=== PATIENT | male | born 2000 | race Hispanic/Latino ===

== ENCOUNTER 2023-12-16 14:48 | Emergency (ER) | payer SELFPAY ==
--- NOTE | 2023-12-16 16:14 | RAD REPORT ---
EXAM: Testicular/scrotal ultrasound HISTORY: Left testicle pain COMPARISON: None TECHNIQUE: Multiplanar grayscale and color Doppler images were obtained in a testicular/scrotal ultra sound. Spectral analysis of the Doppler waveforms of the testicles were performed. FINDINGS: Right testicle: Normal in echogenicity. No focal mass. Normal internal flow. Left testicle: Normal in echogenicity. No focal mass. Normal internal flow. Right epididymis. No epididymal cyst. Normal internal flow. Left epididymis. No epididymal cyst. Normal internal flow. No hydrocele is present. Left-sided varicocele is present. IMPRESSION: Left-sided varicocele. Bilateral testicular blood flow.
[2023-12-16 16:50] LABS: Specific Gravity 1.022 (1.005-1.030); Sqamous Epithelial None Seen /HPF (None Seen); Urine Bacteria <20 /HPF (<20); Urine Bilirubin NEGATIVE (Negative); Urine Blood Negative (Negative); Urine Clarity Extremely Turbid (Clear); Urine Color Light-Yellow (Yellow); Urine Culture Reflex Order NOT NEEDED; Urine Glucose NEGATIVE (Negative); Urine Ketones NEGATIVE (Negative); Urine Microscopic Reflex YN ORDER UMIC; Urine Nitrite NEGATIVE (Negative); Urine Protein NEGATIVE (Negative); Urine RBC <5 /HPF (None Seen); Urine Urobilinogen Normal (Normal); Urine WBC <5 /HPF (<5)
--- NOTE | 2023-12-16 17:20 | EDPHYS ---
Physician Documentation [facility] Name: Connor Quiroz Age: 23 yrs Sex: Male : 2000 Arrival Date: 12/16/2023 Time: 14:48 Bed 12 Private MD: ED Physician Romain Hyman HPI: 12/15 15:10 This 23 yrs old Male presents to ER via Ambulatory with complaints of cp Testicular Lump, Testicular Pain. 15:10 The patient presents with tenderness, of the left testicle, c/o palpated tender "lump". cp Onset: The symptoms/episode began/occurred yesterday. Associated signs and symptoms: Pertinent positives: lower abdomen pain and tenderness. Historical: - Allergies: 15:11 No Known Allergies; aa5 - PMHx: 15:11 None; aa5 - PSHx: 15:11 Appendectomy; aa5 - Immunization history:: Adult Immunizations unknown. - Infectious Disease History:: Denies. - Social history:: Smoking status: Patient reports the use of cigarette tobacco products. ROS: 15:15 : Positive for testicular pain Negative for urinary symptoms, hematuria, cp 15:15 Constitutional: Negative for body aches, chills, fever, poor PO intake, cp 15:15 Abdomen/GI: Negative for vomiting, diarrhea, constipation, 15:15 Back: Negative for pain at rest, pain with movement, 15:15 All other systems are negative, Exam: 15:22 Constitutional: The patient appears in no acute distress, alert, awake, non-toxic, well cp developed, well nourished, 15:22 Head/Face: Normocephalic, atraumatic. cp 15:22 Chest/axilla: Inspection: normal, 15:22 Cardiovascular: Rate: normal, Rhythm: regular, 15:22 Respiratory: the patient does not display signs of respiratory distress, Respirations: normal, no use of accessory muscles, no retractions, labored breathing, is not present, 15:22 Abdomen/GI: Inspection: abdomen appears normal, Bowel sounds: active, all quadrants, Palpation: abdomen is soft and non-tender, in all quadrants, 15:22 : Male external genitalia: Patient is not circumisioned. swelling: is not appreciated, tenderness, of the left testicle is noted, that is mild, 15:22 Skin: cellulitis, is not appreciated, no rash present. Vital Signs: 15:10 BP 116 / 64; Pulse 70; Resp 18 S; Temp 97.6(TE); Pulse Ox 100% on R/A; Weight 52.16 kg aa5 (R); Height 5 ft. 4 in. (R); 15:10 Body Mass Index 19.74 (52.16 kg, 162.56 cm) aa5 MDM: 15:09 Patient medically screened. 16:00 Differential diagnosis: appendicitis, UTI, urethritis, std, testicular torsion, cp epididymitis. 17:20 Data reviewed: vital signs, nurses notes, lab test result(s), radiologic studies, cp ultrasound, and as a result, I will discharge patient. 17:20 I considered the following discharge prescriptions or medication management in the emergency department Medications were administered in the Emergency Department. See MAR. Counseling: I had a detailed discussion with the patient and/or guardian regarding the historical points, exam findings, and any diagnostic results supporting the discharge/admit diagnosis, lab results, radiology results, to return to the emergency department if symptoms worsen or persist or if there are any questions or concerns that arise at home. Response to treatment: the patient's symptoms have mildly improved after treatment, and as a result, I will discharge patient. 12/15 14:59 Order name: Urinalysis w/ reflexes; Complete Time: 17:18 12/15 17:18 Interpretation: Reviewed. 12/15 15:20 Order name: US Scrotum Testicles; Complete Time: 16:15 12/15 16:15 Interpretation: Report reviewed. Administered Medications: 17:59 Drug: Rocephin (cefTRIAXone) IM 1 grams IM once Route: IM; Site: left ventrogluteal; jl7 18:14 Follow up: Response: No adverse reaction jl7 17:59 Drug: AZITHromycin PO 1 grams PO once Route: PO; jl7 18:15 Follow up: Response: No adverse reaction jl7 Disposition: 12/16 12:40 Chart complete. 15:56 Co-signature as Attending Physician, Romain Hyman MD I agree with the assessment and nilda plan of care. Disposition Summary: 12/16/23 17:20 Discharge Ordered Notes: Location: Home cp Problem: new cp Symptoms: have improved cp Condition: Stable cp Diagnosis - Left testicular pain - Vericocele cp Followup: cp - With: Alok Mayes MD - When: 1 week - Reason: pain continues Discharge Instructions: - Discharge Summary Sheet cp - Testicular Self-Exam cp Forms: - Medication Reconciliation Form cp - Antibiotic Education cp - Prescription Opioid Use cp - Patient Portal Instructions cp - Leadership Thank You Letter cp - Work release form hb Prescriptions: - Doxycycline Hyclate 100 mg Oral Tablet - take 1 tablet ORAL route every 12 hours; 20 tablet; Refills: 0, Product cp Selection Permitted - Diclofenac Sodium 75 mg Oral Tablet Sustained Release - take 1 tablet ORAL route 2 times per day; 30 tablet; Refills: 0, Product cp Selection Permitted Signatures: Dispatcher [employer] EDRomain Thompson MD MD cha Calderon, Audri, RN RN aa5 Romain Combs PA PA Enid Christianson RN RN jl7
--- NOTE | 2023-12-16 17:20 | ER ---
Nurse's Notes [facility] Name: Connor Quiroz Age: 23 yrs Sex: Male : 2000 Arrival Date: 12/16/2023 Time: 14:48 Bed 12 Private MD: Diagnosis: Left testicular pain-Vericocele Presentation: 12/15 15:10 Chief complaint: Patient states: "I think I have a hernia on my left testicle". aa5 Coronavirus screen: At this time, the client does not indicate any symptoms associated with coronavirus-19. Ebola Screen: Patient denies travel to an Ebola-affected area in the 21 days before illness onset. Initial Sepsis Screen: Does the patient meet any 2 criteria? No. Patient's initial sepsis screen is negative. Does the patient have a suspected source of infection? No. Patient's initial sepsis screen is negative. Risk Assessment: Do you want to hurt yourself or someone else? Patient reports no desire to harm self or others. Onset of symptoms was December 2023. 15:10 Method Of Arrival: Ambulatory aa5 15:10 Acuity: BRIDGETTE 3 aa5 Historical: - Allergies: 15:11 No Known Allergies; aa5 - PMHx: 15:11 None; aa5 - PSHx: 15:11 Appendectomy; aa5 - Immunization history:: Adult Immunizations unknown. - Infectious Disease History:: Denies. - Social history:: Smoking status: Patient reports the use of cigarette tobacco products. Screenin:18 [facility] ED Fall Risk Assessment (Adult) History of falling in the last 3 months, jl7 including since admission No falls in past 3 months (0 pts) Confusion or Disorientation No (0 pts) Intoxicated or Sedated No (0 pts) Impaired Gait No (0 pts) Mobility Assist Device Used No (0 pt) Altered Elimination No (0 pt) Score/Fall Risk Level 0 - 2 = Low Risk Oriented to surroundings, Maintained a safe environment. Abuse screen: Denies threats or abuse. Denies injuries from another. Nutritional screening: No deficits noted. Tuberculosis screening: No symptoms or risk factors identified. Assessment: 15:20 Reassessment: Pt at US at this time. jl7 Vital Signs: 15:10 BP 116 / 64; Pulse 70; Resp 18 S; Temp 97.6(TE); Pulse Ox 100% on R/A; Weight 52.16 kg aa5 (R); Height 5 ft. 4 in. (R); 15:10 Body Mass Index 19.74 (52.16 kg, 162.56 cm) aa5 ED Course: 14:52 Patient arrived in ED. im 14:58 Romain Combs PA is PHCP. cp 14:58 Romain Hyman MD is Attending Physician. cp 15:10 Arm band placed on. aa5 15:11 Triage completed. aa5 15:37 Enid Beltrán, RN is Primary Nurse. jl7 15:57 Scrotum Testicles In Process Unspecified. EDMS 16:10 Urine collected: clean catch specimen, cloudy. jl7 16:18 Patient has correct armband on for positive identification. Placed in gown. Bed in low jl7 position. Call light in reach. Side rails up X 1. Provided Education on: use of call . 17:19 Alok Mayes MD is Referral Physician. cp 18:00 No provider procedures requiring assistance completed. Patient did not have IV access jl7 during this emergency room visit. Administered Medications: 17:59 Drug: Rocephin (cefTRIAXone) IM 1 grams IM once Route: IM; Site: left ventrogluteal; jl7 18:14 Follow up: Response: No adverse reaction jl7 17:59 Drug: AZITHromycin PO 1 grams PO once Route: PO; jl7 18:15 Follow up: Response: No adverse reaction jl7 Medication: 16:18 VIS not applicable for this client. jl7 Outcome: 17:20 Discharge ordered by . cp 18:14 Discharged to home ambulatory, with significant other, jl7 18:14 Condition: stable 18:14 Discharge instructions given to patient, significant other, Instructed on discharge instructions, follow up and referral plans. medication usage, safe sex practices, Demonstrated understanding of instructions, follow-up care, medications, Prescriptions given X 2, 18:15 Patient left the ED. jl7 Signatures: Dispatcher [employer] EDMS Neda Patel, RN RN aa5 Romain Combs PA PA cp Enid Beltrán, RN RN jl7 Dotty Abel im
[2023-12-16] MEDS ORDERED: LIDOCAINE 1% MPF 2 ML AMPULE ONE (17:39)
[2023-12-16] MEDS ORDERED: CEFTRIAXONE 1000 MG/VIAL ONE (17:39)
[2023-12-16] MEDS ORDERED: AZITHROMYCIN 250 MG TAB ONE (17:39)
[2023-12-16 18:25] VITALS: BP 116/64; TEMP 97.6; O2SAT 100
== END 2023-12-16 18:15 | disposition home or self-care (01) ==
LOC: ER 14:48
DX: I86.1 Scrotal varices (principal)
CPT/HCPCS: 76870; 81001; 96372; 99284; J0696